=== PATIENT | female | born 1985 | race African-American/Black ===

== ENCOUNTER 2018-08-26 06:53 | Emergency (ER) | payer SELFPAY ==
--- NOTE | 2018-08-26 06:57 | EDM.PDOC ---
ED HPI GENERAL MEDICAL PROBLEM - General Stated Complaint: HEAVY FEMALE BLEEDING Time Seen by Provider: 08/26/18 06:57 Source of Information: Reports: Patient - History of Present Illness INITIAL COMMENTS - FREE TEXT/NARRATIVE: HISTORY AND PHYSICAL: History of present illness: [Patient presents with crampy painful heavy menstruation and passage of clots She does have a known history of endometriosis as well as she states her belly is somewhat protuberant compared to usual She is not on any form of contraception she has had a previous ectopic No fever nausea vomiting diarrhea constipation chest pain shortness breath headache dizziness or palpitation no bowel or urine symptoms ] Review of systems: As per history of present illness and below otherwise all systems reviewed and negative. Past medical history: As per history of present illness and as reviewed below otherwise noncontributory. Surgical history: As per history of present illness and as reviewed below otherwise noncontributory. Social history: No reported history of drug or alcohol abuse. Family history: As per history of present illness and as reviewed below otherwise noncontributory. Physical exam: HEENT: Atraumatic, normocephalic, pupils reactive, negative for conjunctival pallor or scleral icterus, mucous membranes moist, throat clear, neck supple, nontender, trachea midline. Lungs: Clear to auscultation, breath sounds equal bilaterally, chest nontender. Heart: S1S2, regular, negative for clicks, rubs, or JVD. Abdomen: Soft, nondistended slightly protuberant , nontender. Negative for masses or hepatosplenomegaly. Negative for costovertebral tenderness. Pelvis: Stable nontender. Genitourinary: Deferred. Rectal: Deferred. Extremities: Atraumatic, negative for cords or calf pain. Neurovascular unremarkable. Neuro: Awake, alert, oriented. Cranial nerves II through XII unremarkable. Cerebellum unremarkable. Motor and sensory unremarkable throughout. Exam nonfocal. Diagnostics: [CBC CMP UA hCG INR PT ] abdomen flat and upright Transvaginal ultrasound Therapeutics: [Toradol 60 IM Medroxyprogesterone progesterone by mouth 5 mg daily #5 no refill Follow-up with gynecology] Impression: [menomettrohagia Remick history of baseline Definitive disposition and diagnosis as appropriate pending reevaluation and review of above. Lower Abdominal Pain Score (Numeric/FACES): 10 - Related Data Allergies Allergy/AdvReac Type Severity Reaction Status Date / Time acetaminophen Allergy Rash Verified 08/26/18 07:13 [From Excedrin Extra Strength] aspirin Allergy Rash Verified 08/26/18 07:13 [From Excedrin Extra Strength] caffeine Allergy Rash Verified 08/26/18 07:13 [From Excedrin Extra Strength] Home Meds: Home Meds . [No Known Home Meds] 08/26/18 [History] ED ROS GENERAL - Review of Systems Review Of Systems: See Below ED EXAM, GENERAL - Physical Exam Exam: See Below Course - Vital Signs Last Recorded V/S: Last Vital Signs Temp 97.7 F 08/26/18 07:10 Pulse 106 H 08/26/18 07:10 Resp 18 08/26/18 07:10 BP 142/86 H 08/26/18 07:10 Pulse Ox 98 08/26/18 07:10 - Orders/Labs/Meds Labs: Laboratory Tests 08/26/18 08/26/18 08/26/18 Range/Units 07:22 07:22 07:30 WBC 8.84 (4.0-11.0) K/uL RBC 3.86 L (4.30-5.90) M/uL Hgb 11.0 L (12.0-16.0) g/dL Hct 33.9 L (36.0-46.0) % MCV 87.8 (80.0-98.0) fL MCH 28.5 (27.0-32.0) pg MCHC 32.4 (31.0-37.0) g/dL RDW Std Deviation 51.0 (28.0-62.0) fl RDW Coeff of Dyan 16 H (11.0-15.0) % Plt Count 265 (150-400) K/uL MPV 11.10 (7.40-12.00) fL Neut % (Auto) 38.0 L (48.0-80.0) % Lymph % (Auto) 46.3 H (16.0-40.0) % [place] % (Auto) 5.9 (0.0-15.0) % Eos % (Auto) 9.2 H (0.0-7.0) % Baso % (Auto) 0.6 (0.0-1.5) % Neut # (Auto) 3.4 (1.4-5.7) K/uL Lymph # (Auto) 4.1 H (0.6-2.4) K/uL [place] # (Auto) 0.5 (0.0-0.8) K/uL Eos # (Auto) 0.8 H (0.0-0.7) K/uL Baso # (Auto) 0.1 (0.0-0.1) K/uL Nucleated RBC % 0.0 /100WBC Nucleated RBCs # 0 K/uL INR Sodium (136-145) mmol/L Potassium (3.5-5.1) mmol/L Chloride (98-107) mmol/L Carbon Dioxide (21.0-32.0) mmol/L BUN (7.0-18.0) mg/dL Creatinine (0.6-1.0) mg/dL Est Cr Clr Drug Dosing mL/min Estimated GFR (MDRD) ml/min Glucose (74-106) mg/dL Calcium (8.5-10.1) mg/dL Total Bilirubin (0.2-1.0) mg/dL AST (15-37) IU/L ALT (14-63) IU/L Alkaline Phosphatase (46-116) U/L Total Protein (6.4-8.2) g/dL Albumin (3.4-5.0) g/dL Globulin (2.6-4.0) g/dL Albumin/Globulin Ratio (0.9-1.6) Urine Color YELLOW Urine Appearance CLEAR Urine pH 6.0 (5.0-8.0) Ur Specific [place] >= 1.030 (1.001-1.035) Urine Protein 30 H (NEGATIVE) mg/dL Urine Glucose (UA) NEGATIVE (NEGATIVE) mg/dL Urine Ketones TRACE H (NEGATIVE) mg/dL Urine Occult Blood LARGE H (NEGATIVE) Urine Nitrite NEGATIVE (NEGATIVE) Urine Bilirubin NEGATIVE (NEGATIVE) Urine Urobilinogen 0.2 (<2.0) EU/dL Ur Leukocyte Esterase NEGATIVE (NEGATIVE) Urine RBC 1-2 (0-2/HPF) Urine WBC 1-2 (0-5/HPF) Ur Epithelial Cells MODERATE (NONE-FEW) Urine Bacteria FEW (NEGATIVE) Urine HCG, Qual NEGATIVE (NEGATIVE) 08/26/18 08/26/18 Range/Units 07:30 07:30 WBC (4.0-11.0) K/uL RBC (4.30-5.90) M/uL Hgb (12.0-16.0) g/dL Hct (36.0-46.0) % MCV (80.0-98.0) fL MCH (27.0-32.0) pg MCHC (31.0-37.0) g/dL RDW Std Deviation (28.0-62.0) fl RDW Coeff of Dyan (11.0-15.0) % Plt Count (150-400) K/uL MPV (7.40-12.00) fL Neut % (Auto) (48.0-80.0) % Lymph % (Auto) (16.0-40.0) % [place] % (Auto) (0.0-15.0) % Eos % (Auto) (0.0-7.0) % Baso % (Auto) (0.0-1.5) % Neut # (Auto) (1.4-5.7) K/uL Lymph # (Auto) (0.6-2.4) K/uL [place] # (Auto) (0.0-0.8) K/uL Eos # (Auto) (0.0-0.7) K/uL Baso # (Auto) (0.0-0.1) K/uL Nucleated RBC % /100WBC Nucleated RBCs # K/uL INR 0.98 Sodium 139 (136-145) mmol/L Potassium 3.6 (3.5-5.1) mmol/L Chloride 104 (98-107) mmol/L Carbon Dioxide 27.6 (21.0-32.0) mmol/L BUN 13 (7.0-18.0) mg/dL Creatinine 0.8 (0.6-1.0) mg/dL Est Cr Clr Drug Dosing 77.63 mL/min Estimated GFR (MDRD) > 60.0 ml/min Glucose 98 (74-106) mg/dL Calcium 9.9 (8.5-10.1) mg/dL Total Bilirubin 0.2 (0.2-1.0) mg/dL AST 17 (15-37) IU/L ALT 18 (14-63) IU/L Alkaline Phosphatase 68 (46-116) U/L Total Protein 7.9 (6.4-8.2) g/dL Albumin 3.9 (3.4-5.0) g/dL Globulin 4.0 (2.6-4.0) g/dL Albumin/Globulin Ratio 1.0 (0.9-1.6) Urine Color Urine Appearance Urine pH (5.0-8.0) Ur Specific [place] (1.001-1.035) Urine Protein (NEGATIVE) mg/dL Urine Glucose (UA) (NEGATIVE) mg/dL Urine Ketones (NEGATIVE) mg/dL Urine Occult Blood (NEGATIVE) Urine Nitrite (NEGATIVE) Urine Bilirubin (NEGATIVE) Urine Urobilinogen (<2.0) EU/dL Ur Leukocyte Esterase (NEGATIVE) Urine RBC (0-2/HPF) Urine WBC (0-5/HPF) Ur Epithelial Cells (NONE-FEW) Urine Bacteria (NEGATIVE) Urine HCG, Qual (NEGATIVE) Departure - Departure Time of Disposition: 09:11 Disposition: Home, Self-Care 01 Condition: Good Clinical Impression: Menometrorrhagia - Discharge Information Referrals: PCP,None [Primary Care Provider] - Additional Instructions: Medication as prescribed Return if symptoms persist or worsen Follow-up with gynecology, you can obtain follow-up within 2 weeks [facility] or you may elect follow-up at home on return in one month [facility] [address] [place], [place] [id number] [facility] [address] [place] [id number] The following information is given to patients seen in the emergency department who are being discharged to home. This information is to outline your options for follow-up care. We provide all patients seen in our emergency department with a follow-up referral. The need for follow-up, as well as the timing and circumstances, are variable depending upon the specifics of your emergency department visit. If you don't have a primary care physician on staff, we will provide you with a referral. We always advise you to contact your personal physician following an emergency department visit to inform them of the circumstance of the visit and for follow-up with them and/or the need for any referrals to a consulting specialist. The emergency department will also refer you to a specialist when appropriate. This referral assures that you have the opportunity for follow-up care with a specialist. All of these measure are taken in an effort to provide you with optimal care, which includes your follow-up. Under all circumstances we always encourage you to contact your private physician who remains a resource for coordinating your care. When calling for follow-up care, please make the office aware that this follow-up is from your recent emergency room visit. If for any reason you are refused follow-up, please contact the [facility] emergency department at and asked to speak to the emergency department charge nurse.
[2018-08-26 08:11] LABS: CHLORIDE,CL 104 mmol/L (98-107); SODIUM,NA 139 mmol/L (136-145)
--- NOTE | 2018-08-26 09:01 | US ---
EXAMINATION: Transvaginal pelvic ultrasound HISTORY: menorrhagia COMPARISON: None TECHNIQUE: Grayscale, color Doppler, and spectral Doppler imaging obtained. FINDINGS: The uterus is normal in size, contour, and echogenicity. The endometrial stripe thickness measures 5 mm. The right ovary is normal in size, contour, and echogenicity demonstrating small follicles. Small amount of complex free fluid is noted. Possibly secondary to a collapsed hemorrhagic cyst. No definitive adnexal masses. Left ovary is surgically absent. IMPRESSION: 1. Small amount of complex free pelvic fluid, possibly secondary to a collapsed hemorrhagic cyst. No definitive masses or abnormalities otherwise demonstrated.
--- NOTE | 2018-08-26 09:08 | CR ---
EXAMINATION: Abdomen HISTORY: Pain COMPARISON: None TECHNIQUE: AP and upright views FINDINGS: There is no free air under the diaphragm. There is a nonobstructive bowel gas pattern. No calcifications project over the kidneys. No organomegaly. Multiple pelvic phleboliths noted. Visualized osseous structures appear normal. IMPRESSION: No acute findings noted within the abdomen.
[2018-08-26] MEDS ORDERED: Ketorolac 60 MG/2 ML SDV IM ONE (09:12)
== END 2018-08-26 09:34 | disposition home or self-care (01) ==
LOC: MW.ED 06:53
DX: N92.1 Excessive and frequent menstruation with irregular cycle (principal); Z91.018 Allergy to other foods; Z88.6 Allergy status to analgesic agent
CPT/HCPCS: 36415; 74019; 76830; 80053; 81001; 81025; 85025; 85610; 96372; 99284; J1885; 99283

== ENCOUNTER 2018-08-27 15:19 | Emergency (ER) | payer SELFPAY ==
--- NOTE | 2018-08-27 16:03 | EDM.PDOC ---
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 She was seen yesterday for her heavy bleeding and states she returned today because she has become very dizzy and passed out twice today and the bleeding has not gotten any better. Her labs yesterday she showed an H&H of 11 and 34. Negative hCG. Ultrasound showed a possible ruptured hemorrhagic cyst with free fluid in the pelvis. She was started on medroxyprogesterone. She states the bleeding started 3 days ago and was really light and then became more heavy past couple of days. She reports that she does have a monthly cycle but is sometimes late or sometimes early and varies on the heaviness of her bleeding. She is not currently on any hormonal contraceptives. She has history of ectopic and right ovary removal as well as endometriosis. Review of systems: As per history of present illness and below otherwise all systems reviewed and negative. Past medical history: As per history of present illness and as reviewed below otherwise noncontributory. Surgical history: As per history of present illness and as reviewed below otherwise noncontributory. Social history: No reported history of drug or alcohol abuse. Family history: As per history of present illness and as reviewed below otherwise noncontributory. Physical exam: General: Patient sitting comfortably in no acute distress and nontoxic appearing HEENT: Atraumatic, normocephalic, pupils reactive, negative for conjunctival pallor or scleral icterus, mucous membranes moist, throat clear, neck supple, nontender, trachea midline. No meningeal signs. Lungs: Clear to auscultation, breath sounds equal bilaterally, chest nontender. Heart: S1S2, regular, negative for clicks, rubs, or overt murmur. Abdomen: Soft, nondistended, nontender. Negative for masses or hepatosplenomegaly. Negative for costovertebral tenderness. Pelvis: Stable nontender. Genitourinary: Deferred. Rectal: Deferred. Extremities: Atraumatic, negative for cords or calf pain. Neurovascular unremarkable. Neuro: Awake, alert, oriented. Cranial nerves II through XII unremarkable. Cerebellum unremarkable. Motor and sensory unremarkable throughout. Exam nonfocal. Notes: Discussed with Dr. Ervin, she would like to have her continue medroxyprogesterone and see patient in the clinic this week and advised to have her call the clinic for follow up. Diagnostics: CBC, CMP, urine hCG, EKG Therapeutics: None Prescriptions: None Impression: Menorrhagia Plan: 1. Continue medroxyprogesterone as prescribed 2. 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 3. Return to ED as needed as discussed Definitive disposition and diagnosis as appropriate pending reevaluation and review of above. Lower Abdominal Pain Score (Numeric/FACES): 8 - Related Data Allergies Allergy/AdvReac Type Severity Reaction Status Date / Time acetaminophen Allergy Rash Verified 08/26/18 07:13 [From Excedrin Extra Strength] aspirin Allergy Rash Verified 08/26/18 07:13 [From Excedrin Extra Strength] caffeine Allergy Rash Verified 08/26/18 07:13 [From Excedrin Extra Strength] Home Meds: Home Meds . 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 L ovary and fallopian tube removal Social & Family History - Family History Family Medical History: Noncontributory - Caffeine Use Caffeine Use: Reports: Energy Drinks ED ROS GENERAL - Review of Systems Review Of Systems: ROS reveals no pertinent complaints other than HPI. ED EXAM, GI/ABD - Physical Exam Exam: See Below (see dictation) Course - Vital Signs Last Recorded V/S: Last Vital Signs Temp 98.0 F 08/27/18 15:49 Pulse 93 08/27/18 15:49 Resp 18 08/27/18 15:49 BP 126/85 08/27/18 15:49 Pulse Ox 100 08/27/18 15:49 - Orders/Labs/Meds Labs: Laboratory Tests 08/27/18 08/27/18 08/27/18 Range/Units 15:45 16:07 16:07 WBC 7.94 (4.0-11.0) K/uL RBC 3.72 L (4.30-5.90) M/uL Hgb 10.8 L (12.0-16.0) g/dL Hct 32.6 L (36.0-46.0) % MCV 87.6 (80.0-98.0) fL MCH 29.0 (27.0-32.0) pg MCHC 33.1 (31.0-37.0) g/dL RDW Std Deviation 49.9 (28.0-62.0) fl RDW Coeff of Dyan 16 H (11.0-15.0) % Plt Count 256 (150-400) K/uL MPV 10.90 (7.40-12.00) fL Neut % (Auto) 55.0 (48.0-80.0) % Lymph % (Auto) 29.8 (16.0-40.0) % [place] % (Auto) 5.4 (0.0-15.0) % Eos % (Auto) 9.3 H (0.0-7.0) % Baso % (Auto) 0.5 (0.0-1.5) % Neut # (Auto) 4.4 (1.4-5.7) K/uL Lymph # (Auto) 2.4 (0.6-2.4) K/uL [place] # (Auto) 0.4 (0.0-0.8) K/uL Eos # (Auto) 0.7 (0.0-0.7) K/uL Baso # (Auto) 0.0 (0.0-0.1) K/uL Nucleated RBC % 0.0 /100WBC Nucleated RBCs # 0 K/uL Sodium 138 (136-145) mmol/L Potassium 4.0 (3.5-5.1) mmol/L Chloride 106 (98-107) mmol/L Carbon Dioxide 24.5 (21.0-32.0) mmol/L BUN 10 (7.0-18.0) mg/dL Creatinine 0.8 (0.6-1.0) mg/dL Est Cr Clr Drug Dosing 77.63 mL/min Estimated GFR (MDRD) > 60.0 ml/min Glucose 98 (74-106) mg/dL Calcium 9.6 (8.5-10.1) mg/dL Total Bilirubin 0.4 (0.2-1.0) mg/dL AST 13 L (15-37) IU/L ALT 26 (14-63) IU/L Alkaline Phosphatase 61 (46-116) U/L Total Protein 7.7 (6.4-8.2) g/dL Albumin 3.8 (3.4-5.0) g/dL Globulin 3.9 (2.6-4.0) g/dL Albumin/Globulin Ratio 1.0 (0.9-1.6) Urine HCG, Qual NEGATIVE (NEGATIVE) Departure - Departure Time of Disposition: 17:32 Disposition: Home, Self-Care 01 Condition: Good Clinical Impression: Menorrhagia - Discharge Information Referrals: PCP,Unknown [Primary Care Provider] - Forms: ED Department Discharge Additional Instructions: The following information is given to patients seen in the emergency department who are being discharged to home. This information is to outline your options for follow-up care. We provide all patients seen in our emergency department with a follow-up referral. The need for follow-up, as well as the timing and circumstances, are variable depending upon the specifics of your emergency department visit. If you don't have a primary care physician on staff, we will provide you with a referral. We always advise you to contact your personal physician following an emergency department visit to inform them of the circumstance of the visit and for follow-up with them and/or the need for any referrals to a consulting specialist. The emergency department will also refer you to a specialist when appropriate. This referral assures that you have the opportunity for follow-up care with a specialist. All of these measure are taken in an effort to provide you with optimal care, which includes your follow-up. Under all circumstances we always encourage you to contact your private physician who remains a resource for coordinating your care. When calling for follow-up care, please make the office aware that this follow-up is from your recent emergency room visit. If for any reason you are refused follow-up, please contact the [facility] Emergency Department at and asked to speak to the emergency department charge nurse. [facility] [address] [place] [id number] 1. Continue medroxyprogesterone as prescribed 2. 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 3. Return to ED as needed as discussed
[2018-08-27 16:34] LABS: CHLORIDE,CL 106 mmol/L (98-107); SODIUM,NA 138 mmol/L (136-145)
== END 2018-08-27 18:10 | disposition home or self-care (01) ==
LOC: MW.ED 15:19
DX: N92.0 Excessive and frequent menstruation with regular cycle (principal); Z88.8 Allergy status to other drugs, medicaments and biological substances
CPT/HCPCS: 36415; 80053; 81025; 85025; 99283; 99284